=== PATIENT | female | born 1960 | race Caucasian/White ===

== ENCOUNTER 2017-07-21 17:36 | Emergency (ER) | payer MEDICARE ==
[~2017-07-21] VITALS: Ht 172.7 cm; Wt 122.0 kg
[~2017-07-21 17:36] MED LIST: ADVAIR 1001 DISK W/D; ADVAIR HFA 115/12 GM; ALBUTEROL SULF8.5 GM IH; ALBUTEROL0.83 MG/ML INH; ALBUTEROL17 GM; ALBUTEROL17 GM INH; AMBIEN10 MG; AMBIEN10 MG PO; AMLODIPINE BESY10 MG PO; AMOXICILLIN500 M PO; ANTIVERT25 MG PO; ARIXTRA2.5 MG/0.5 SQ; ASPIRIN325 M2 PO; ATIVAN1 MG; ATROVENT SOLN2.5 ML AERO NEB; BACLOFEN20 M1 PO; BACLOFEN20 MG PO; BENAZEPRIL HCL20 MG PO; BENTYL20 MG PO; BROVANA15 MCG/2 M IH; BYSTOLIC5 MG; CARBAMAZEPINE100 M4 PO; CARISOPRODOL350 MG PO; CATAPRES0.1 MG PO; CEBERCLON1 MG PO; CEFDINIR300 M1 PO; CLONAZEPAM0.5 MG PO; CLONAZEPAM1 M1 PO; CLONAZEPAM1 MG; COREG12.5 MG PO; COUMADIN2.5 MG PO; COUMADIN5 M2 PO; COUMADIN5 MG PO; CYMBALTA60 MG; DARVOCET-N 1001 EACH PO; DARVOCET-N 1001 TAB PO; DARVON65 M1 PO; DAZIDOX10 MG PO; DELTASONE50 MG PO; DEMEROL50 MG PO; DILTIAZEM ER300 MG PO; DOXEPIN HCL10 MG PO; DULCOLAX10 MG/SUPP RC; DULCOLAX5 MG PO; FLEXERIL10 MG PO; FLEXERIL5 MG PO; FLUCONAZOLE100 MG; GABAPENTIN100 MG PO; GABAPENTIN300 M1 PO; GEODON20 MG; HYDROCODON-ACE1 EAC5 PO; HYDROXYZINE HCL25 M1 PO; KLONOPIN0.5 MG PO; LAMOTRIGINE100 M2 PO; LAMOTRIGINE25 M1 PO; LEVAQUIN500 MG; LEVAQUIN750 M1 PO; LEVAQUIN750 MG; LEXAPRO5 MG PO; LISINOPRIL-HCTZ1 TAB; LISINOPRIL-HCTZ1 TAB PO; LISINOPRIL/HCTZ; LORCET PLUS 7.1 EACH PO; LORTAB 5/500 TA1 TAB PO; LOTENSIN20 MG PO; LOTREL 10/20 MG1 CAP; LOTREL 5/20 MG1 CAP; METHYLPREDNISOLO4 MG; MILK OF MA400 MG/5 M PO; MYCOSTATIN15 G1 APL; NORCO 10/325 TA1 TAB PO; NORCO 5-325 TA1 EACH PO; NORCO 5/325 TAB1 TAB PO; NORCO 5/3251 TAB PO; NORCO 7.5/325 T1 TAB; NORCO 7.5/325 T1 TAB PO; NORCO 7.5/3251 TA3 PO; NORFLEX100 MG PO; NORVASC10 MG PO; OXYCODONE HCL5 MG PO; OXYCONTIN10 MG PO; PERCOCET 5/3251 TAB PO; PREDNISONE10 MG; PREDNISONE10 MG PO; PREDNISONE20 MG PO; PREDNISONE5 GM; PREDNISONE5 MG; PROMETHAZINE HC25 M3 PO; PROMETHAZINE-C120 ML; PROVENTIL HFA6.7 GM; PULMICORT0.5 MG/2 M IH; QUETIAPINE FUM200 M1 PO; QUETIAPINE FUM300 MG PO; QUETIAPINE FUMA25 MG PO; RELAFEN500 MG; SENNO8.6 MG PO; SENOKOT-S TABLE1 TAB PO; SINEQUAN10 MG PO; SKELAXIN800 MG PO; SOMA250 MG PO; SOMA350 MG PO; SPIRIVA18 MC1 IH; SPIRIVA18 MCG IH; STEROID; TAMIFLU75 MG PO; TOPAMAX50 MG; TRILEPTAL150 M2 PO; TYLENOL325 M2 PO; TYLENOL325 MG PO; ULTRAM50 MG PO; VALIUM5 MG PO; VIBRA-TABS100 MG; VICODIN 5/500 T1 TAB PO; VISTARIL25 MG PO; WELLBUTRIN75 MG; XANAX1 M1 PO; XOPENEX0.63 MG/1 IH; ZITHROMAX250MG Z-PAK PO; ZOFRAN ODT4 MG/UDTAB PO; ZOLOFT100 MG; ZOLOFT100 MG PO; ZOLOFT50 MG PO
[2017-07-21] MEDS ORDERED: CARDIZEM CD PO (17:48)
[2017-07-21] MEDS ORDERED: COUMADIN2.5 M1 PO (17:49)
[2017-07-21] MEDS ORDERED: SEROQUEL100 M2 (17:49)
[2017-07-21] MEDS ORDERED: SEROQUEL200 M2 PO (17:49)
[2017-07-21] MEDS ORDERED: SEROQUEL400 M1 PO (17:50)
[2017-07-21] MEDS ORDERED: VALIUM10 M1 PO (17:50)
[2017-07-21] MEDS ORDERED: OXCARBAZEPINE300 M1 PO (17:51)
[2017-07-21 18:43] LABS: BASO % 0.4 % (0-2); EOS % 2.3 % (0-7); EOSINOPHIL ABSOLUTE COUNT 0.2 tho/cmm (0.0-0.7); HCT-HEMATOCRIT 38.8 % (34.0-49.0); IMMATURE GRANULOCYTES ABSOLUTE 0.02 tho/cmm (0-0.03); IMMATURE GRANULOCYTES PERCENT 0.2 % (0-0.3); LYMPH % 24.4 % (20-45); LYMPH ABSOLUTE COUNT 2.4 tho/cmm (0.8-4.5); MCH (MEAN CORPUSCULAR HGB) 31.7 pg (28.0-32.0); MCHC MEAN CORPUSCULAR HGB CONC 36.1 % (32.0-36.0); MCV (MEAN CELL VOLUME) 87.8 fl (82.0-96.0); MEAN PLATELET VOLUME 8.9 cmc (9.4-12.4); MONO % 5.5 % (0-12); MONOCYTE ABSOLUTE COUNT 0.5 tho/cmm (0.0-1.2); NEUTROPHIL ABSOLUTE COUNT 6.6 tho/cmm (1.6-8.0); NEUTROPHIL-AUTOMATED 6.6 tho/cmm (1.6-8.0); NEUTROPHILS % 67.2 % (40-80); PLATELET COUNT 276 tho/cmm (150-450); RED BLOOD COUNT 4.42 mil/cmm (4.00-5.20); RED CELL DISTRIBUTION WIDTH 13.1 % (12.4-16.4); WHITE BLOOD COUNT 9.8 tho/cmm (4.0-10.0)
[2017-07-21 18:44] LABS: URINE BILIRUBIN NEGATIVE (NEG); URINE BLOOD NEGATIVE (NEG); URINE GLUCOSE (UA) NEGATIVE (NEG); URINE KETONE NEGATIVE (NEG); URINE LEUKOCYTE ESTERASE NEGATIVE (NEG); URINE NITRITE NEGATIVE (NEG); URINE PH 6.5 (5.0-8.0); URINE PROTEIN NEGATIVE (NEG); URINE SPECIFIC GRAVITY 1.015 (1.003-1.030)
[2017-07-21 18:49] LABS: URINE APPEARANCE CLEAR; URINE COLOR YELLOW
[2017-07-21 19:08] LABS: ALB/GLOB RATIO 1.1 (0.8-2.0); ALBUMIN 3.3 g/dl (3.5-5.0); ALKALINE PHOSPHATASE 87 U/L (33-138); ALT/SGPT 20 U/L (12-78); ANION GAP 14 mmol/L (0-20); AST/SGOT 14 U/L (10-40); BILIRUBIN,TOTAL 0.2 mg/dl (0-1.5); BLOOD UREA NITROGEN 7 mg/dl (6-24); CARBON DIOXIDE-VENOUS 23 mmol/L (22-32); CHLORIDE 98 mmol/l (96-110); CREATININE 0.62 mg/dl (0.50-1.10); GLUCOSE 100 mg/dL (70-110); POTASSIUM 4.5 mmol/L (3.7-5.1); SODIUM 130 mmol/L (135-145); T4 (THYROXINE) 5.9 ug/dl (5.0-12.6); eGFR VALUE FOR BLACK >90 mL/Min
[2017-07-21 19:12] LABS: TSH-THYROID STIMULATING HORM. 0.99 uIU/ml (0.40-3.80)
== END 2017-07-21 19:49 ==
LOC: EDMED 17:36
PROVIDERS: Emergency Medicine
DX: E87.1 Hypo-osmolality and hyponatremia (principal); E86.0 Dehydration; I10 Essential (primary) hypertension; J45.909 Unspecified asthma, uncomplicated; D86.9 Sarcoidosis, unspecified; F17.200 Nicotine dependence, unspecified, uncomplicated; Z86.711 Personal history of pulmonary embolism; Z90.49 Acquired absence of other specified parts of digestive tract
CPT/HCPCS: J7030